=== PATIENT | male | born 1985 | race Caucasian/White ===

== ENCOUNTER 2019-10-11 13:28 | Emergency (ER) | payer OTHER ==
--- OUTSIDE RECORDS SUMMARY | 2019-10-11 13:40 | XMS REPORT | Continuity of Care Document ---
:1985 External Reference #:[id number] Author Name Damian Archibald PA Address [address] [place] [address] Problems Description No Information Available Social History Type Date Description Comments Sex Unknown Allergies, Adverse Reactions, Alerts Description No Known Drug Allergies Medications Description No Active Medications Immunizations Description No Information Available Vital Signs Date Vital Result Comment 09/19/2019 11:07am Weight 316.00 lb Heart Rate 91 /min BP Systolic 134 mmHg BP Diastolic 85 mmHg Height 71 inches 5'11" BMI (Body Mass Index) 44.1 kg/m2 Urine Dipstick - Blood NEGATIVE Urine Dipstick - Protein NEGATIVE Urine Dipstick - Glucose NEGATIVE Urine Dipstick - Leukocytes NEGATIVE Left ear audiology results 8FT Right ear audiology results 8FT Right Visual Acuity Distance 20/20 Left Visual Acuity Distance 20/20 Both 20/20 Results Description No Information Available Procedures Description No Information Available Medical Devices Description No Information Available Encounters Description No Information Available Assessments Date Code Description Provider 09/19/2019 Z02.1 Encounter for pre-employment examination Damian Archibald PA 09/19/2019 F17.210 Nicotine dependence, cigarettes, uncomplicated Damian Archibald PA 09/19/2019 I86.1 Scrotal varices Damian Archibald PA 09/19/2019 E66.01 Morbid (severe) obesity due to excess calories Damian Archibald PA 09/19/2019 Z68.41 Body mass index (BMI) 40.0-44.9, adult Damian Archibald PA Plan of Treatment 09/19/2019 - Damian Archibald PAZ02.1 Encounter for pre-employment examinationComments:[facility] Nicotine dependence, cigarettes , uncomplicatedComments:smoking 1/2pk per day. no intent to quit with maveypaD86.1 Scrotal varicesComments:LEFT sided varicocele not symptomatic.E66.01 Morbid (severe) obesity due to excess qjtovymwV84.41 Body mass index (BMI) 40.0-44.9, adultAllNew Medication:No Active Medications - Functional Status Description No Information Available Mental Status Description No Information Available Referrals Description No Information Available
[2019-10-11 13:41] VITALS: BP 138/74
--- NOTE | 2019-10-11 15:17 | UC ---
Lower Extremity/Ankle HPI - History of Current Complaint Chief Complaint: UCLowerExtremity Stated Complaint: ANKLE PAIN Time Seen by Provider: 10/11/19 15:12 Hx Obtained From: Patient Pain Intensity: 3 - Allergies/Home Medications Allergies/Adverse Reactions: Allergies Allergy/AdvReac Type Severity Reaction Status Date / Time No Known Allergies Allergy Verified 10/11/19 13:41 PMH/Surg Hx/FS Hx/Imm Hx Previously Healthy: Yes - Denies significant PMH - Surgical History Surgical History: Yes Surgery Procedure, Year, and Place: right cheek cyst removed - Family History Known Family History: Positive: Non-Contributory - Social History Lives: With Family Alcohol Use: Occasionally Substance Use Type: None Smoking Status (MU): Heavy Every Day Tobacco Smoker Have You Smoked in the Last Year: No When Did the Patient Quit Smoking/Using Tobacco: 1 1/5 yrs ago Review of Systems All Other Systems Reviewed And Are Negative: Yes Constitutional: Negative: Fever, Chills Skin: Negative: Rash, Bruising Respiratory: Positive: Negative Cardiovascular: Positive: Negative Gastrointestinal: Positive: Negative Genitourinary: Positive: Negative Motor: Negative: Weakness Neurovascular: Negative: Decreased Sensation Musculoskeletal: Positive: Arthralgia - See HPI. Negative: Calf Tenderness Neurological: Positive: Negative Is Patient Immunocompromised?: No Physical Exam - Summary Physical Exam Summary: GENERAL APPEARANCE: Well developed, well nourished, alert and cooperative, and appears to be in no acute distress. CARDIAC: Normal S1 and S2. No S3, S4 or murmurs. Rhythm is regular. There is no peripheral edema, cyanosis or pallor. Extremities are warm and well perfused. Capillary refill is less than 2 seconds. Peripheral pulses intact. LUNGS: Clear to auscultation without rales, rhonchi, wheezing or diminished breath sounds. ABDOMEN: Positive bowel sounds. Soft, nondistended, nontender. No guarding or rebound. No masses or hepatosplenomegally. MUSKULOSKELETAL: Normal muscular development. Normal gait. EXTREMITIES: Tenderness to lateral left ankle without gross deformity, erythema , ecchymosis, or edema. Full ROM. No laxity. Circulation and sensation intact. SKIN: Skin normal color, texture and turgor with no lesions or eruptions. Triage Information Reviewed: Yes Vital Signs: Initial Vital Signs Temp 98.6 F 10/11/19 13:38 Pulse 85 10/11/19 13:38 Resp 16 10/11/19 13:38 BP 138/74 10/11/19 13:38 Pulse Ox 100 10/11/19 13:38 Vital Signs Reviewed: Yes Diagnostics - Radiology No standard instances Radiology Interpretation Completed By: Radiologist Summary of Radiographic Findings: Order Information: ANKLE LEFT 3+VWS. Indication: Left ankle pain. 3 views of the left ankle demonstrates no fracture. No other bone or joint abnormality is identified. IMPRESSION: No fracture of the left ankle is noted. Lower Extremity Course/Dx - Course Course Of Treatment: 34-year-old male presents with complaints of 1 month history of intermittent left ankle pain. Reports no specific injury although states that he has started a new job that is required him to be on his feet and walking for long periods of time. States pain is to the lateral left ankle. Pain worsens with walking. States he occasionally will have swelling of the ankle at the end of the day. Denies redness, ecchymosis, increased warmth, or decreased range of motion. Afebrile. Vital signs stable. Patient had tenderness to lateral left ankle without gross deformity, erythema, ecchymosis, or edema, full ROM, no laxity with circulation and sensation intact. X-ray showed no acute osseous injury. Reviewed results with the patient. Recommending conservative treatment with naproxen 500 mg every 12 hours as needed for pain and RICE. He is to follow-up with his primary care provider in 7 days if symptoms are not improving. Anticipatory guidance warning symptoms were reviewed with the patient. Verbalizes understanding and agrees with plan of care. - Differential Dx/Diagnosis Differential Diagnosis/HQI/PQRI: Arthritis, Contusion, Dislocation, Fracture ( Closed), Gout, Infection, Sprain Provider Diagnosis: Acute left ankle pain Discharge ED - Sign-Out/Discharge Documenting (check all that apply): Patient Departure All imaging exams completed and their final reports reviewed: Yes - Discharge Plan Condition: Stable Disposition: HOME Prescriptions: Naproxen [Naproxen 500 mg tab] 500 mg PO Q12HR PRN #30 tablet PRN Reason: Pain - Moderate Patient Education Materials: Arthralgia (ED) Referrals: Moose Sher MD [Primary Care Provider] - 7 Days Additional Instructions: The x-ray performed in the clinic today showed no evidence of a fracture. Rest the ankle as much as possible. Apply ice to the affected area for 15-20 minutes at least 4 times a day to help with the pain and swelling. Elevate the leg to help reduce any swelling. Take naproxen 500 mg 1 tab every 12 hours with food as needed for pain. Follow up with your primary care provider in 7 days if symptoms do not improve. Seek immediate medical attention if you have severe pain not managed with pain medication, you are unable to walk or bear any weight, develop numbness or tingling in the foot or toes, or have any worsening of symptoms. - Billing Disposition and Condition Condition: STABLE Disposition: Home
== END 2019-10-11 15:54 | disposition home or self-care (01) ==
LOC: UCEAST 13:28
DX: M25.572 Pain in left ankle and joints of left foot (principal); F17.290 Nicotine dependence, other tobacco product, uncomplicated
CPT/HCPCS: 99212; G0463